=== PATIENT | female | born 1960 | race Caucasian/White ===

== ENCOUNTER 2019-01-14 09:16 | Emergency (ER) | payer BC ==
[~2019-01-14] VITALS: Ht 154.9 cm; Wt 60.0 kg
[2019-01-14] MEDS ORDERED: ondansetron 4mg rapidly disintigrating tab PO ONE (09:40)
[2019-01-14] MEDS ORDERED: ONDA4TAB6 PO (09:43)
[2019-01-14 10:31] VITALS: BP 125/70
== END 2019-01-14 10:33 | disposition home or self-care (01) ==
LOC: ER 09:16
DX: S06.0X0A Concussion without loss of consciousness, initial encounter (principal); S00.03XA Contusion of scalp, initial encounter; M54.2 Cervicalgia; Z88.1 Allergy status to other antibiotic agents; Z88.2 Allergy status to sulfonamides; Z79.899 Other long term (current) drug therapy; Z79.01 Long term (current) use of anticoagulants; Z91.040 Latex allergy status; W01.198A Fall on same level from slipping, tripping and stumbling with subsequent striking against other object, initial encounter; Y93.89 Activity, other specified; Y92.89 Other specified places as the place of occurrence of the external cause; Y99.8 Other external cause status
CPT/HCPCS: 99283; J2405